=== PATIENT | male | born 1940 | race Caucasian/White ===

== ENCOUNTER 2019-04-08 17:01 | Inpatient (IN) | payer MEDICARE ==
[2019-04-08] MEDS ORDERED: Ketorolac Tromethamine 30 MG/ML VIAL ONE (18:31)
[2019-04-08] MEDS ORDERED: Dexamethasone 4 mg/ml Vial ONE (18:31)
--- NOTE | 2019-04-08 19:12 | CT ---
CT LUMBAR SPINE WITHOUT CONTRAST: 04/08/19 HISTORY: Back pain since waking up this morning. COMPARISON: None. CORRELATION: MRI of the lumbar spine of 03/07/14. FINDINGS: There are five lumbar type vertebrae. Mild leftward curvature of the lumbar spine. Lumbar spine verte bral body height is maintained. There is no fracture of the vertebral bodies. There is vacuum disc ph enomenon at T12-L1, L1-L2, L2-L3, L4-5 and L5-S1. Severe loss of disc space height and end plate scle rosis and osteophyte formation at L2-3, compatible with type II Modic change. There are bilateral pars defects at L5. There is associated 8.5 mm of anterolisthesis of L5 upon S1. Visualized solid organs are grossly unremarkable. There appears to be stranding of the mesentery petar cent to what is likely a portion of the duodenum, incompletely evaluated. There is asymmetric edema i nvolving the right psoas muscles. Diverticulosis of the sigmoid colon is noted. Limited evaluation of the contents of the central spinal canal and neural foramina due to technique. T10-T11 and T11-T12 do not demonstrate high grade central canal stenosis. T12-L1: Vacuum disc phenomenon. No significant central canal stenosis. Mild bilateral neural foramina l narrowing. L1-L2: Vacuum disc phenomenon. Broad based disc bulge, ligamentum flavum thickening, and facet hypert rophy result in mild central canal stenosis. Moderate bilateral neural foraminal narrowing. L2-L3: Vacuum disc phenomenon. Broad based disc bulge, ligamentum flavum thickening, and facet hypert rophy result in moderate central canal stenosis. Severe right and moderate to severe left neural fora jona narrowing. L3-L4: There is a broad based disc bulge, ligamentum flavum thickening and facet hypertrophy that res ults in moderate central canal stenosis. There is abnormal soft tissue attenuation with a focus of ai r along the right paraspinal region. Findings may represent disc material. However, the fat planes be tween adjacent psoas muscle and the soft tissue density is somewhat obscured and there does appear to be asymmetric prominence. The possibility of paraspinal inflammatory change cannot be excluded. Kristal elate clinically. Pre and post contrast MRI may be beneficial. L4-L5: Vacuum disc phenomenon. Broad based disc bulge, ligamentum flavum thickening and facet hypertr ophy result in moderate central canal stenosis. L5-S1: Vacuum disc phenomenon. Bilateral pars defects. No high grade central canal stenosis. Moderate to severe right and left foraminal narrowing. IMPRESSION: 1. 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 2. Multilevel vacuum disc phenomenon with varying degrees of central canal stenosis and neural f oraminal as described above. 3. Asymmetric abnormal soft tissue attenuation of the right paraspinal region at the L3 level wi th a small focus of air. Findings may represent a right lateral disc extrusion. However, the fat petar cent to the medial aspect of the right psoas muscle is obscured and there appears to be asymmetric fu llness of the right psoas muscle. The possibility of an infectious inflammatory process cannot be exc luded. Further evaluation with pre and post contrast MRI lumbar spine is recommended. POS: PPP
[2019-04-08 19:48] LABS: #Lymphocytes 0.6 thou/uL (1.20-3.40); #Monocytes 1.3 thou/uL (0.11-0.59); %Lymphocytes 3.5 % (21.0-51.0); %Monocytes 8.1 % (0.0-10.0); %Neutrophils 88.4 % (42.0-75.0); Hemoglobin 14.5 g/dL (14.0-18.0); Mean Corpuscular HGB CONC 34.1 g/dL (32.0-36.0); Mean Corpuscular Hemoglobin 32.2 pg (27.0-31.0); Mean Corpuscular Volume 94.5 fL (78.0-98.0); Mean Platelet Volume 7.9 fL (7.4-10.4); Platelet Count 774 thou/uL (130-400); RBC Distribution Width 12.1 % (11.5-14.5); White Blood Cell (WBC) Count 15.8 thou/uL (4.8-10.8)
[2019-04-08 20:12] LABS: ALT (SGPT) 16 U/L (8-55); AST (SGOT) 25 U/L (5-34); Albumin 4.2 g/dL (3.4-4.8); Alkaline Phosphatase 67 U/L (40-110); Anion Gap 12 mmol/L (10-20); BUN (Urea Nitrogen) 22 mg/dL (8.4-25.7); Bilirubin, Total 0.9 mg/dL (0.2-1.2); Calc. Creatinine Clearance 0 mL/min (70-130); Calcium 9.2 mg/dL (7.8-10.44); Carbon Dioxide 24 mmol/L (23-31); Chloride 107 mmol/L (98-107); Estimated GFR-MDRD 69; Glucose 139 mg/dL (83-110); Potassium 3.8 mmol/L (3.5-5.1); Protein, Total 7.2 g/dL (5.8-8.1); Sodium 139 mmol/L (136-145)
--- NOTE | 2019-04-08 21:34 | MRI ---
LUMBAR SPINE MRI WITH AND WITHOUT CONTRAST: 04/08/19 HISTORY: Possible infection at the L3-L4 level. COMPARISON: 03/07/14. CORRELATION: CT lumbar spine 04/08/19. FINDINGS: Heterogeneous T1 marrow signal intensity of the lumbar vertebrae. There is intrinsic T1 hypointensity with associated T2 and STIR hyperintensity along the midline and right aspect of the inferior end pl ate of L3 and superior end plate of L4. There is evidence of edema along the midline and right aspect of the disc space. Postcontrast images demonstrate mild enhancement of the end plate as well as enha ncement of the disc space. STIR images demonstrate mild edema along the anterior and right paraspinal aspect of the L3-L4 disc space. Postcontrast images demonstrate enhancement along the medial aspect of the disc space, right paraspinal in location. There is also enhancement along the medial aspect of the right psoas muscle with loss of the normal fat plane. There does appear to be mild associated ed dennis. The remainder of the lumbar spine does not demonstrate any abnormal vertebral body enhancement. Images do demonstrate significant enhancement posterior to the L3 vertebral body, L3-4 disc space and to a lesser extent L4 vertebral body. Anterior epidural abscess cannot be excluded. Conus medullaris terminates at the inferior aspect of L1. There is evidence of fluid signal intensity in the left and right facets at L1-L2, L3-L4. There are p ars defects with associated grade I anterolisthesis of L5 upon S1. There is fluid signal intensity in the facets at L5. T12-L1: No high grade central canal stenosis. L1-L2: Mild central canal stenosis. There is ligamentum flavum thickening and facet hypertrophy. Mode rate to severe bilateral foraminal narrowing. L2-L3: Moderate central canal stenosis. Moderate to severe right and moderate left foraminal narrowin g. L3-L4: Moderate to severe central canal stenosis due to broad based disc osteophyte complex. Severe r ight and moderate to severe left foraminal narrowing. L4-L5: Broad based disc bulge with a small central/right subarticular disc bulge. Mild to moderate ce ntral canal stenosis. Moderate to severe bilateral foraminal narrowing. L5-S1: No significant central canal stenosis. Moderate to severe bilateral foraminal narrowing. There does appear to be some enhancement involving the posterior right paraspinal soft tissues at the L3-L4 facets which may represent reactive change and facet arthropathy/reactive arthritic change. IMPRESSION: Findings suggesting inflammatory change at the L3-L4 disc space as well as the adjacent paraspinal mu scles (right psoas muscle). There is also suggestion of possible anterior epidural abscess/inflammato ry change at the L3 level, extending inferiorly to the L3-L4 disc space. POS: PPP
[2019-04-08] MEDS ORDERED: Cefepime 2 GM VIAL ONE (21:54)
[2019-04-08] MEDS ORDERED: Fentanyl 100 MCG/2 ML VIAL ONE (21:54)
[2019-04-08] MEDS ORDERED: Ondansetron PF 4 MG/2 ML Vial ONE (21:54)
[2019-04-09] MEDS ORDERED: Ondansetron ODT 4 MG TAB SL PRN (00:15)
[2019-04-09] MEDS ORDERED: Ondansetron PF 4 MG/2 ML Vial IVP PRN ×2 (00:15→09:46)
[2019-04-09] MEDS: Fentanyl 100 MCG/2 ML VIAL SLOW IVP PRN ×3 (00:40→07:21)
[2019-04-09 01:16] VITALS: BMI 26.4
[2019-04-09] MEDS ORDERED: hydrALAZINE 25 MG TAB PO PRN (09:46)
[2019-04-09] MEDS ORDERED: Ondansetron ODT 4 MG TAB PO PRN (09:46)
[2019-04-09] MEDS ORDERED: hydrALAZINE 20 MG/ML VIAL SLOW IVP PRN (09:46)
[2019-04-09] MEDS ORDERED: Fentanyl 100 MCG/2 ML VIAL SLOW IVP PRN (09:46)
[2019-04-09] MEDS: Cyclobenzaprine 10 MG TAB PO PRN (10:22)
[2019-04-09] MEDS ORDERED: Finasteride 5 MG TAB PO SCH (10:30)
[2019-04-09] MEDS ORDERED: Famotidine 20 MG TAB PO SCH (10:30)
[2019-04-09] MEDS ORDERED: Folic Acid 1 MG TAB PO SCH (10:30)
[2019-04-09] MEDS ORDERED: CeleCOXIB 100 MG CAP PO SCH (10:30)
[2019-04-09] MEDS ORDERED: Enoxaparin Sodium 40 MG/0.4 ML SYRINGE SC SCH (10:30)
--- NOTE | 2019-04-09 11:18 | HP ---
PRIMARY CARE PHYSICIAN: Dr. Good Sarmiento. NEUROSURGERY: Dr. Shawn Gordillo. CHIEF COMPLAINT: "I woke up yesterday morning and could barely stand." HISTORY OF PRESENT ILLNESS: Mr. Driver is a pleasant 78-year-old gentleman, who has a history of chronic low back pain after having a fall back in 1971. He says he has chronic "sciatica" and mainly has pain that goes down the left side of his back and this has been relatively stable since he had an injury back in 1971. He says that he had some degenerative disease at L4 and L5. He has been to see Dr. Caceres in [facility] off and on, and he does exercises 3 times a week primarily core exercises, which he says it helps to stabilize his back pain. However, yesterday morning, he says he woke up in severe pain in his lower back. He says when he tries to stand or sit up that it causes excruciating pain. He denies having any fever or chills. No nausea. No vomiting. He denies any bowel or bladder problems associated with this. He also denies any weight loss. He says he tries to keep his weight stable at 175 pounds. Due to the severe pain in his back, he came to the ER for evaluation. There, they did a CT scan of his lumbar spine as well as a MRI of the lumbar spine and found changes, which were concerning for possible epidural abscess with some inflammatory changes at L3-L4 level as well as some adjacent inflammatory changes in the paraspinous muscles. He also was noted to have an elevated white blood cell count at 15.8 and his C-reactive protein was also elevated, and for this reason, he is being admitted. Otherwise, the patient has no other significant past medical complaints. REVIEW OF SYSTEMS: All systems were negative except for that mentioned in the history of present illness. PAST MEDICAL HISTORY: Negative. PAST SURGICAL HISTORY: He has had a synovial cyst removed from both hands. He also has a history of surgery for deviated septum and removal of nasal polyps. He also had a nail that was imbedded in his left leg and it had been there for a year and a half, and this had to be removed as it caused a large hematoma. He also had a left Achilles tendon repair and tendinitis surgery for tendinitis. ALLERGIES: PENICILLIN AND DECLOMYCIN, BUT I THINK IT IS DEMECLOCYCLINE WELL CERTAIN NARCOTICS. SOCIAL HISTORY: He is . He has 3 children. 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 He is a nonsmoker. He says he rarely drinks alcohol and he would not want to be resuscitated. He says he does not want chest compressions or to be placed on a ventilator. CURRENT MEDICATIONS: Include; 1. Ascorbic acid 1 capsule twice daily. 2. Bilberry Extract 100 mg daily. 3. Biotin 23598 mcg daily. 4. Celebrex 200 mg daily. 5. Desonide lotion. 6. Eucalyptus menthol cough drops p.r.n. 7. Proscar 5 mg p.o. daily. 8. Fish oil 1600 mg twice daily. 9. Flonase nasal spray. 10. Folic acid 0.4 p.o. daily. 11. Lactase 9000 units daily. 12. Loratadine 10 mg daily. 13. Singulair 10 mg daily. 14. Naprosyn 220 mg daily. 15. [place]-3 fish oil 1 capsule daily. 16. DHEA 25 mg daily. 17. Viagra p.r.n. 18. Tolnaftate cream daily. 19. Vitamin E 400 units as directed. PHYSICAL EXAMINATION: GENERAL: He is alert and oriented. He appears to be in no acute distress. He is well developed and well nourished. VITAL SIGNS: Blood pressure initially was elevated at 198 systolic, currently it is down to 129/67; heart rate 67; respiratory rate of 16; temperature is 99. HEENT: His pupils are equal, round, and reactive to light. Extraocular muscles are intact. His sclerae are anicteric. Throat, there is no erythema. No exudates. NECK: No adenopathy. No bruits. LUNGS: Clear to auscultation. There is no wheezing. No rales. No rhonchi. CARDIOVASCULAR: He has a normal S1, S2. There is no S3 or S4. No murmurs, clicks, or rubs. ABDOMEN: Soft, nontender, nondistended. Positive for bowel sounds. There is no rebound, no guarding. No organomegaly. Liver span was approximately 6 cm to percussion. EXTREMITIES: He appears to have some mild calf atrophy on the right lower extremity and on the right calf and thigh. There are no joint effusions. No crepitus. NEUROLOGICAL: His cranial nerves are intact. Muscle strength was 5/5 in both the upper and lower extremities. However, on both right and left lower extremity, he did have some mild weakness against resistance. However, he was able to dorsiflex his foot as well as a large toe. His reflexes are equivocal. SKIN AND INTEGUMENT: There are no skin changes. No rash. LABORATORY DATA: White blood cell count is 15.8, hemoglobin is 14.5, hematocrit is 42.5, and platelet count is 774. Sodium 139, potassium 3.8, chloride is 107, CO2 is 24, BUN of 22, creatinine 1.04, glucose is 139, and C-reactive protein is 3.37. ASSESSMENT: This is a pleasant 78-year-old gentleman, who presents with the sudden onset of [id number] low back pain. He has radiographic evidence of possible inflammatory changes in the L3-L4 region. His white blood cell count is also elevated as well as his C-reactive protein. Therefore, the most likely etiology is a spinal epidural abscess. He has had manipulation of the spine with injections in the past, which could put him at risk. Other changes such as malignancy or other structural defects are less likely. 1. Possible spinal infection. We will place him empirically on IV antibiotics. We will continue vancomycin and cefepime. We will consult ID for further recommendations. We will also consult Neurosurgery to assess the stability of this lesion. 2. Elevated blood pressure. This is without a diagnosis of hypertension. His blood pressure has since normalized and I suspect the elevation was due to pain. We will hold off on starting any antihypertensives and place him on p.r.n. medications as needed. 3. History of benign prostatic hypertrophy. We will continue the finasteride. 4. History of overactive bladder. We will continue oxybutynin. 5. The patient will be placed on DVT and GI prophylaxis. Job ID: [id number]
[2019-04-09] MEDS ORDERED: Heparin 1,000 UNITS/ML VIAL ONE (16:26)
[2019-04-09] MEDS: Famotidine 20 MG TAB PO SCH (20:13)
[2019-04-09] MEDS: Cefepime 1 GM in Sodium Chloride 0.9% 100 ML IVPB SCH (20:13)
--- NOTE | 2019-04-09 20:15 | CON ---
DATE OF CONSULTATION: 04/09/2019 REASON FOR CONSULTATION: Lumbar spinal infection. HISTORY OF PRESENT ILLNESS: A 78-year-old, first admission to this hospital with a history of anterior spondylolisthesis, sciatica, Guillain-[place] syndrome, and BPH, who has chronic low back pain in [id number] intensity and the day before admission developed sudden exacerbation of the pain without any obvious injury. He did not have any fever or chills. No headaches. No neck pain or thoracic spine pain. No dyspnea or chest pain. No cough. No abdominal pain or diarrhea. He has a little bit of incontinence of urine. A little bit of BPH symptoms. The patient had an MRI, which showed findings described below. Currently, appears in no distress. The pain goes up to 4/10 when he goes up to the bathroom and when he is lying down, it is around 1/10. Other points in the review of systems as above. 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 Never smoker. ALLERGIES: DEMECLOCYCLINE, OPIOIDS, AND PENICILLIN. FAMILY HISTORY: Noncontributory. CURRENT MEDICATIONS: 1. Tylenol. 2. Cefepime. 3. Celebrex. 4. Flexeril. 5. Lovenox. 6. Pepcid. 7. Sublimaze. 8. Proscar. 9. Flonase. 10. Folvite. 11. Apresoline. 12. Singulair. 13. Zofran. 14. Vancomycin. PHYSICAL EXAMINATION: VITAL SIGNS: T-max 99.2, blood pressure 113/69, pulse 79, respirations 18, and O2 saturation 94. SKIN: With peripheral IV access. No Pederson catheter. Voiding in the urinal. No lymphadenopathy. HEENT: Ocular movements conjugate. Oral cavity with quite a few teeth in place, in fairly decent shape. No oral lesions. NECK: Supple. No jugular venous distention or carotid bruits. LUNGS: Symmetric clear breath sounds. Moderate lumbosacral spine tenderness on palpation. HEART: S1 and S2. Regular rate. ABDOMEN: Soft, not distended or tender. No ascites. No bladder distention. EXTREMITIES: No joint inflammatory activity. Strength in upper and lower extremities 5/5. Pulses 1+ in dorsalis pedis. No edema. Plantar responses are flexor. No clonus. NEUROLOGIC: His cognitive function appears to be intact. LABORATORY DATA: Chemistry was normal except for glucose 139. CRP was 3.37. White cell count 15.8, hemoglobin 14.5, platelets 774, and 88% neutrophils. I do not have a urinalysis. Two sets of blood cultures thus far no growth and the lumbar spine MRI showed inflammatory changes L3-L4 disk space and adjacent paraspinal muscles, possible anterior epidural abscess at L3 level extending inferiorly to L3-L4 disk space. ASSESSMENT: Chronic low back pain, now with exacerbation and evidence of inflammatory changes at L3-L4 level with diskitis and paraspinal myositis and possible small abscess in the anterior epidural area. DISCUSSION: The usual pathogens include Staphylococcus aureus, coagulase-negative Staph, gram-negative rods, streptococci, and Enterococcus. In his case, the urinary tract may be a candidate for source. Usually those are not amenable to aspiration or biopsy and I think he is going to probably end up with medical treatment and PICC line placement. I would give him Rocephin and vancomycin for protracted period of time. Discharge planning once he is stabilized. Sometimes Neurosurgery is consulted, I believe fairly confident that Neurosurgery would not intervene in this case, but may request their opinion to see if they concur that. Job ID: [id number]
[2019-04-09] MEDS ORDERED: Vancomycin 1.5 GRAM/300 ML BAG 1.5 GM in Premix Bag 1 BAG IVPB SCH (21:00)
[2019-04-09] MEDS ORDERED: Montelukast Sodium 10 mg Tablet PO SCH (21:00)
[2019-04-09] MEDS ORDERED: Vancomycin HCl 1 GM in Premix Bag 1 BAG IVPB SCH (21:00)
[2019-04-10 04:26] LABS: Band 4 % (5-11); Hemoglobin 13.3 g/dL (14.0-18.0); Lymphocytes 3 % (21-51); MDiff Complete? YES; Mean Corpuscular HGB CONC 32.8 g/dL (32.0-36.0); Mean Corpuscular Hemoglobin 31.6 pg (27.0-31.0); Mean Corpuscular Volume 96.3 fL (78.0-98.0); Mean Platelet Volume 7.9 fL (7.4-10.4); Monocytes 5 % (0-10); Neutrophil 88 % (42-75); Platelet Count 660 thou/uL (130-400); Platelet Morphology Comment Appears Increased; RBC Distribution Width 12.3 % (11.5-14.5); Red Blood Cell (RBC) Count 4.22 mill/uL (4.70-6.10); White Blood Cell (WBC) Count 16.1 thou/uL (4.8-10.8)
[2019-04-10 04:33] LABS: Anion Gap 12 mmol/L (10-20); BUN (Urea Nitrogen) 27 mg/dL (8.4-25.7); Calc. Creatinine Clearance 58 mL/min (70-130); Calcium 8.7 mg/dL (7.8-10.44); Carbon Dioxide 26 mmol/L (23-31); Chloride 106 mmol/L (98-107); Estimated GFR-MDRD 59; Glucose 114 mg/dL (83-110); Sodium 140 mmol/L (136-145)
[2019-04-10] MEDS: Fluticasone Propionate Nasal Spray 16 gm Bottle NASAL SCH (06:00)
[2019-04-10] MEDS: Cyclobenzaprine 10 MG TAB PO PRN ×2 (08:30→20:32)
[2019-04-10] MEDS: Famotidine 20 MG TAB PO SCH ×2 (08:32→20:32)
[2019-04-10] MEDS: Folic Acid 1 MG TAB PO SCH (08:33)
[2019-04-10] MEDS: Finasteride 5 MG TAB PO SCH (08:34)
[2019-04-10] MEDS: CeleCOXIB 100 MG CAP PO SCH (08:34)
[2019-04-10] MEDS: Cefepime 1 GM in Sodium Chloride 0.9% 100 ML IVPB SCH (08:35)
[2019-04-10] MEDS: Enoxaparin Sodium 40 MG/0.4 ML SYRINGE SC SCH (08:37)
[2019-04-10] MEDS: Acetaminophen 325 MG TAB PO PRN ×2 (08:48→18:24)
[2019-04-10] MEDS ORDERED: Non-Formulary Item 1 EACH (Celecoxib [Celebrex] 200 MG) PO SCH (09:00)
[2019-04-10] MEDS ORDERED: Non-Formulary Item 1 EACH (Folic Acid [Folic Acid] 0.4 MG) PO SCH (09:00)
--- NOTE | 2019-04-10 12:18 | PDOC.HOSPP ---
- Subjective Encounter Date: 04/10/19 Encounter Time: 12:16 Subjective: Mr. Driver was seen today in follow-up of Lumbar spine epidural abscess. He continues to have about the same amount of back pain. He does not have any new complaints. - Objective Vital Signs & Weight: Vital Signs (12 hours) Temp Pulse Resp BP Pulse Ox 04/10/19 07:25 99.3 F 80 18 147/75 H 92 L 04/10/19 04:13 98.2 F 84 20 121/70 93 L Weight Weight 178 lb 15.893 oz I&O: 04/09/19 04/10/19 04/11/19 06:59 06:59 06:59 Intake Total 200 1500 Balance 200 1500 Result Diagrams: 04/10/19 03:47 04/10/19 03:47 Hospitalist ROS - Medication Medications: Active Medications Generic Name Dose Route Start Last Admin Trade Name Freq PRN Reason Stop Dose Admin Acetaminophen 650 mg 04/09/19 09:46 04/10/19 08:48 Tylenol PO 650 mg Q4H PRN Administration Headache/Fever/Mild Pain (1-3) Celecoxib 200 mg 04/10/19 09:00 04/10/19 08:34 Celebrex PO 200 mg DAILY DIRK Administration Cyclobenzaprine HCl 5 mg 04/09/19 09:46 04/10/19 08:30 Flexeril PO 5 mg TID PRN Administration Muscle Spasm Enoxaparin Sodium 40 mg 04/10/19 09:00 04/10/19 08:37 Lovenox SC Not Given 0900 DIRK Famotidine 20 mg 04/09/19 21:00 04/10/19 08:32 Pepcid PO 20 mg BID DIRK Administration Fentanyl 25 mcg 04/09/19 09:46 04/09/19 14:29 Sublimaze SLOW IVP 25 mcg Q4HR PRN Administration Severe Pain (7-10) Finasteride 5 mg 04/10/19 09:00 04/10/19 08:34 Proscar PO 5 mg DAILY DIRK Administration Fluticasone Propionate 0 gm 04/10/19 09:00 04/10/19 06:00 Flonase Nasal [place] NASAL 2 spr DAILY DIRK Administration Folic Acid 0.5 mg 04/10/19 09:00 04/10/19 08:33 Folvite PO 0.5 mg DAILY DIRK Administration Cefepime HCl 1 gm/ Sodium 100 mls @ 200 mls/hr 04/09/19 21:00 04/10/19 08:35 Chloride IVPB 100 mls Q12HR DIRK Administration Vancomycin 1.5 GRAM/300 ML BAG 300 mls @ 200 mls/hr 04/09/19 21:00 04/09/19 20:34 1.5 gm/ Device IVPB 300 mls Q24HR DIRK Administration Montelukast Sodium 10 mg 04/09/19 21:00 04/09/19 20:13 Singulair PO 10 mg Q7DAYS DIRK Administration Sodium Chloride 10 ml 04/09/19 21:00 04/10/19 08:48 Flush - Normal Saline IVF 10 ml Q12HR DIRK Administration - Exam Eye: PERRL Heart: RRR, no murmur, no gallops, no rubs, normal peripheral pulses Respiratory: CTAB, no wheezes, no rales, no ronchi, normal chest expansion, no tachypnea Gastrointestinal: soft, non-tender, non-distended, normal bowel sounds, no palpable masses, no hepatomegaly Extremities: no cyanosis, no clubbing, no edema Musculoskeletal: normal strength (in both lower extremities), no muscle wasting Psychiatric: normal affect, normal behavior, A&O x 3 Hosp A/P (1) Abscess in epidural space of L2-L5 lumbar spine Code(s): G06.1 - INTRASPINAL ABSCESS AND GRANULOMA Status: Acute (2) BPH (benign prostatic hyperplasia) Code(s): N40.0 - BENIGN PROSTATIC HYPERPLASIA WITHOUT LOWER URINRY TRACT SYMP Status: Acute (3) Overactive bladder Code(s): N32.81 - OVERACTIVE BLADDER Status: Acute - Plan * Lumbar Epidural Abscess- continue Vancomycin and Cefepime- blood cultures are growing Strep * Will place Picc line on Thursday * BPH- stable- continue home medications * Elevated blood pressure- better
--- NOTE | 2019-04-10 14:54 | PRG ---
DATE OF SERVICE: 04/10/2019 SUBJECTIVE: The patient still with some pain in the lower back about the same as before. No respiratory symptoms. No abdominal pain or diarrhea. No genitourinary symptoms. Still able to stand up with some difficulty. OBJECTIVE: VITAL SIGNS: T-max 99.3 to 100.7, blood pressure 120/76, and pulse 85. GENERAL: Awake, alert, and oriented. LUNGS: Clear. HEART: S1 and S2, regular rate. ABDOMEN: Not tender. LABORATORY DATA: White cell count 16.1, hemoglobin 13, platelets 660, 88% neutrophils. Creatinine 1.20. Microbiology with 2 sets of blood cultures with Streptococcus anginosus. ASSESSMENT: Chronic low back pain with exacerbation of inflammatory changes, L3-L4 with diskitis and paraspinal myositis. Now, Streptococcus anginosus bacteremia, 2 sets. DISCUSSION: The patient will have a CT of abdomen and pelvis to evaluate for intra-abdominal inflammatory process and an echocardiogram to complete workup. Switch him to Rocephin once daily. Job ID: [id number]
[2019-04-10] MEDS ORDERED: cefTRIAXone\\ROCEPHIN 2 GM VIAL ONE (14:55)
[2019-04-10] MEDS: cefTRIAXone\\ROCEPHIN 2 GM in Sodium Chloride 0.9% 100 ML IVPB SCH (15:03)
[2019-04-10] MEDS ORDERED: Iopamidol-370 76% 500 ML 1 ML ONE (16:49)
[2019-04-10] MEDS: Docusate 100 MG CAP PO SCH (20:32)
--- NOTE | 2019-04-10 21:09 | CON ---
DATE OF CONSULTATION: This is an imaging review note and chart review. I have not yet seen this patient. Mr. Driver is a 78-year-old man, who came to the emergency department yesterday evening for sudden onset back pain. He has a longstanding history of lower back pain according to the chart. Upon review of his MRI scan, he has tremendous degree of degenerative change with facet distraction from L3 down to S1, extreme facet arthropathy, and spondylosis, as well as a grade 2 anterolisthesis at L5-S1. All this combined imposes varying degree of spinal canal and neural foraminal narrowing, most significant at L3-L4, where he also has hyperintensity within the L3 disk, which could represent diskitis, that is commentary from the radiologist about potential anterior epidural abscess. I think it is difficult to say whether there is or is not, but if this is in fact diskitis, it stands to reason that it could be according to the ER physician and his notes, there is no neurologic dysfunction other than back pain and so from Neurosurgery's plan, we would defer to primary medical management with the Hospitalist team and with Infectious Disease, would also potentially recommend IR biopsy for cultures and sensitivities. From Neurosurgery standpoint, there does not appear to be any imminent surgical intervention necessary. I have not yet seen this patient, but if his neurologic status changes or declines, would invite re-consultation for in-person re-evaluation. Job ID: [id number]
--- NOTE | 2019-04-10 21:12 | CT ---
ABDOMEN CT WITH CONTRAST PELVIC CT WITH CONTRAST: History: Discitis, osteomyelitis. Comparison: None. FINDINGS: ABDOMEN CT: Small bilateral pleural effusions. Lung parenchymal changes may represent atelectasis. Aspiration and /or pneumonia is less favored given linear appearance. Normal heart size. No significant pericardial fluid. Visualized aorta has a normal caliber. Portal vein is patent. Unremarkable gallbladder. Liver, spleen, pancreas, and adrenal glands have appropriate attenuation and enhancement. Symmetric enhancement of the kidneys. Bilaterally, no obstructive uropathy. Gastric mucosa is unremarkable. There is a diverticulum in the third portion of the duodenum. Multipl e normal caliber small bowel loops. No evidence of bowel obstruction. Unremarkable ileocecal junction . Normal caliber appendix. Scattered fecal material in a nondistended, nondilated colon. There is sig moid colon diverticulosis, without evidence of diverticulitis. There is evidence of a stranding of the abdominal mesentery as well as stranding of the left and rig ht perirenal fat. Small amount of fluid in both pericolic gutters. There is periaortic stranding. The re is asymmetric abnormal soft tissue attenuation in the paraspinal region at the L3-4 and L4-5 disc space. Findings are compatible with known discitis osteomyelitis as well as associated inflammatory c hanges of the paraspinal muscles which have been described on previous reports. CT PELVIS: Mild enlargement of the prostate gland. Unremarkable urinary bladder. No pelvic mass, lymphadenopathy, or free air. Trace amount of free fluid in the pelvis. OSSEOUS STRUCTURES: Known osteomyelitis as described in the CT lumbar spine performed 04-08-19. IMPRESSION: 1. Small bilateral effusions. 2. Fluid and inflammatory changes involving the retroperitoneum and mesentery which may be reactive. There is no evidence of intraabdominal abscess. 3. No evidence of acute inflammation with regards to the alimentary canal. 4. Symmetric enhancement of the kidneys. Nonobstructive calculus in the intrarenal collecting system. Bilaterally, no obstructive uropathy. 5. Diverticulum in the third portion of the duodenum without evidence of associated inflammatory benz ge. POS: PPP
[2019-04-10] MEDS: traMADol HCl 50 MG TAB PO PRN (21:55)
[2019-04-11] MEDS: CeleCOXIB 100 MG CAP PO SCH (08:03)
[2019-04-11] MEDS: Famotidine 20 MG TAB PO SCH ×2 (08:04→20:49)
[2019-04-11] MEDS: Docusate 100 MG CAP PO SCH ×2 (08:04→20:49)
[2019-04-11] MEDS: Finasteride 5 MG TAB PO SCH (08:05)
[2019-04-11] MEDS: Folic Acid 1 MG TAB PO SCH (08:05)
[2019-04-11] MEDS: traMADol HCl 50 MG TAB PO PRN ×2 (08:06→20:49)
[2019-04-11] MEDS: Oxybutynin 5 MG TAB PO SCH (08:06)
[2019-04-11] MEDS: Fluticasone Propionate Nasal Spray 16 gm Bottle NASAL SCH (08:07)
[2019-04-11] MEDS: Enoxaparin Sodium 40 MG/0.4 ML SYRINGE SC SCH ×2 (08:07→08:08)
[2019-04-11 08:21] LABS: Hemoglobin 12.7 g/dL (14.0-18.0); Mean Corpuscular HGB CONC 33.1 g/dL (32.0-36.0); Mean Corpuscular Hemoglobin 32.1 pg (27.0-31.0); Platelet Count 562 thou/uL (130-400); RBC Distribution Width 12.2 % (11.5-14.5); Red Blood Cell (RBC) Count 3.97 mill/uL (4.70-6.10)
[2019-04-11 08:25] LABS: Anion Gap 11 mmol/L (10-20); BUN (Urea Nitrogen) 26 mg/dL (8.4-25.7); Calc. Creatinine Clearance 62 mL/min (70-130); Calcium 8.5 mg/dL (7.8-10.44); Carbon Dioxide 26 mmol/L (23-31); Chloride 105 mmol/L (98-107); Estimated GFR-MDRD 63; Glucose 134 mg/dL (83-110); Potassium 3.8 mmol/L (3.5-5.1); Sodium 138 mmol/L (136-145)
--- NOTE | 2019-04-11 09:19 | SPC ---
LEFT UPPER EXTREMITY PICC LINE WITH ULTRASOUND GUIDANCE: HISTORY: Osteomyelitis. COMPARISON: None. EXPOSURE: 0.7 minutes, 5124 mGy*^.cm2. FINDINGS: Successful left upper kidney PICC line placement with ultrasound guidance. Single-lumen 5 [place]og[place]ese cath eter terminates in the cavoatrial junction. 47 cm trim length. TECHNIQUE: Consent was obtained to perform a left upper extremity PICC line with ultrasound guidance. Left arm w as prepped and draped in sterile fashion. 1% lidocaine, buffered with sodium bicarbonate was used for local anesthesia. Under ultrasound guidance, a micropuncture needle was used to cannulate the bas ilic vein. A 0.018 guidewire was advanced through the needle to the level of the superior vena cava. Under fluoroscopy, the wire was advanced into the inferior vena cava to document venous access. Wire was subsequently pulled back to the cavoatrial junction. Tract was dilated. A single-lumen 5 [place]og[place]ese catheter was advanced over the wire. Wire was removed. Catheter does flush and aspirate withou t difficulty. 47 cm trim length. IMPRESSION: Successful left upper extremity PICC line placement with ultrasound guidance. Transcribed Date/Time: 04/11/2019 9:40 AM
[2019-04-11 09:54] LABS: Band 4 % (5-11); Lymphocytes 7 % (21-51); MDiff Complete? YES; Monocytes 5 % (0-10); Neutrophil 83 % (42-75); Platelet Morphology Comment Appears Increased; RBC Morphology Normal; Reactive Lymphocytes 1 % (0-10); Vacuoles SLIGHT
[2019-04-11] MEDS: cefTRIAXone\\ROCEPHIN 2 GM in Sodium Chloride 0.9% 100 ML IVPB SCH (14:40)
--- NOTE | 2019-04-11 16:47 | PDOC.HOSPP ---
- Subjective Encounter Date: 04/11/19 Encounter Time: 16:46 Subjective: Mr. Driver was seen today in follow-up of lumbar epidural abscess. He says the pain in his back is improving some. - Objective Vital Signs & Weight: Vital Signs (12 hours) Temp Pulse Resp BP Pulse Ox 04/11/19 15:20 98.9 F 72 18 130/75 96 04/11/19 11:53 98.7 F 82 11 L 124/72 93 L 04/11/19 11:00 14 04/11/19 08:04 93 L 04/11/19 07:00 98.7 F 78 14 125/78 93 L Weight Weight 178 lb 15.893 oz I&O: 04/10/19 04/11/19 04/12/19 06:59 06:59 06:59 Intake Total 1500 105 Balance 1500 105 Result Diagrams: 04/11/19 07:55 04/11/19 07:55 Hospitalist ROS - Medication Medications: Active Medications Generic Name Dose Route Start Last Admin Trade Name Freq PRN Reason Stop Dose Admin Acetaminophen 650 mg 04/09/19 09:46 04/10/19 18:24 Tylenol PO 650 mg Q4H PRN Administration Headache/Fever/Mild Pain (1-3) Celecoxib 200 mg 04/10/19 09:00 04/11/19 08:03 Celebrex PO 200 mg DAILY DIRK Administration Cyclobenzaprine HCl 5 mg 04/09/19 09:46 04/10/19 20:32 Flexeril PO 5 mg TID PRN Administration Muscle Spasm Docusate Sodium 100 mg 04/10/19 21:00 04/11/19 08:04 Colace PO 100 mg BID DIRK Administration Enoxaparin Sodium 40 mg 04/10/19 09:00 04/11/19 08:08 Lovenox SC Not Given 0900 DIRK Famotidine 20 mg 04/09/19 21:00 04/11/19 08:04 Pepcid PO 20 mg BID DIRK Administration Fentanyl 25 mcg 04/09/19 09:46 04/09/19 14:29 Sublimaze SLOW IVP 25 mcg Q4HR PRN Administration Severe Pain (7-10) Finasteride 5 mg 04/10/19 09:00 04/11/19 08:05 Proscar PO 5 mg DAILY DIRK Administration Fluticasone Propionate 0 gm 04/10/19 09:00 04/11/19 08:07 Flonase Nasal [place] NASAL 2 spr DAILY DIRK Administration Folic Acid 0.5 mg 04/10/19 09:00 04/11/19 08:05 Folvite PO 0.5 mg DAILY DIRK Administration Ceftriaxone Sodium 2 gm/ 100 mls @ 200 mls/hr 04/10/19 15:00 04/11/19 14:40 Sodium Chloride IVPB 100 mls 1500 DIRK Administration Montelukast Sodium 10 mg 04/09/19 21:00 04/09/19 20:13 Singulair PO 10 mg Q7DAYS DIRK Administration Oxybutynin Chloride 5 mg 04/11/19 09:00 04/11/19 08:06 Ditropan PO 5 mg DAILY DIRK Administration Sodium Chloride 10 ml 04/09/19 21:00 04/11/19 08:07 Flush - Normal Saline IVF 10 ml Q12HR DRIK Administration Tramadol HCl 50 mg 04/10/19 09:21 04/11/19 08:06 Ultram PO 50 mg Q4H PRN Administration Moderate Pain (4-6) - Exam Eye: PERRL Heart: RRR, no murmur, no gallops, no rubs, normal peripheral pulses Respiratory: CTAB, no wheezes, no rales, no ronchi, normal chest expansion Gastrointestinal: soft, non-tender, non-distended, normal bowel sounds, no palpable masses, no hepatomegaly Extremities: no cyanosis, no clubbing, no edema Hosp A/P (1) Abscess in epidural space of L2-L5 lumbar spine Code(s): G06.1 - INTRASPINAL ABSCESS AND GRANULOMA Status: Acute (2) BPH (benign prostatic hyperplasia) Code(s): N40.0 - BENIGN PROSTATIC HYPERPLASIA WITHOUT LOWER URINRY TRACT SYMP Status: Acute (3) Overactive bladder Code(s): N32.81 - OVERACTIVE BLADDER Status: Acute - Plan * Lumbar Epidural Abscess- His antibiotics have been transitioned to Rocephin * He had the PICC line placed today * BPH- stable- continue home medications * Elevated blood pressure- better * Discharge plans are in progress
[2019-04-11] MEDS: Cyclobenzaprine 10 MG TAB PO PRN (22:47)
[2019-04-11] MEDS: Acetaminophen 325 MG TAB PO PRN (22:47)
[2019-04-12] MEDS: traMADol HCl 50 MG TAB PO PRN ×4 (02:15→16:26)
[2019-04-12] MEDS: Acetaminophen 325 MG TAB PO PRN (03:30)
[2019-04-12] MEDS: CeleCOXIB 100 MG CAP PO SCH (07:44)
[2019-04-12] MEDS: Famotidine 20 MG TAB PO SCH (07:44)
[2019-04-12] MEDS: Folic Acid 1 MG TAB PO SCH (07:44)
[2019-04-12] MEDS: Docusate 100 MG CAP PO SCH (07:44)
[2019-04-12] MEDS: Oxybutynin 5 MG TAB PO SCH (07:44)
[2019-04-12] MEDS: Finasteride 5 MG TAB PO SCH (07:44)
[2019-04-12] MEDS: Fluticasone Propionate Nasal Spray 16 gm Bottle NASAL SCH (07:47)
[2019-04-12] MEDS: Enoxaparin Sodium 40 MG/0.4 ML SYRINGE SC SCH (07:48)
[2019-04-12] MEDS: cefTRIAXone\\ROCEPHIN 2 GM in Sodium Chloride 0.9% 100 ML IVPB SCH (14:03)
--- NOTE | 2019-04-12 14:53 | PDOC.HOSPP ---
- Subjective Encounter Date: 04/12/19 Encounter Time: 14:51 Subjective: Mr. Driver was seen today in follow-up of lumbar epidural abscess. He notes improved pain. - Objective Vital Signs & Weight: Vital Signs (12 hours) Temp Pulse Resp BP Pulse Ox 04/12/19 12:00 98.2 F 85 18 150/82 H 92 L 04/12/19 08:00 98.2 F 78 14 164/91 H 92 L 04/12/19 03:58 98.4 F 72 16 128/77 92 L Weight Weight 178 lb 15.893 oz I&O: 04/11/19 04/12/19 04/13/19 06:59 06:59 06:59 Intake Total 105 1580 Balance 105 1580 Result Diagrams: 04/11/19 07:55 04/11/19 07:55 Hospitalist ROS - Medication Medications: Active Medications Generic Name Dose Route Start Last Admin Trade Name Freq PRN Reason Stop Dose Admin Acetaminophen 650 mg 04/09/19 09:46 04/12/19 03:30 Tylenol PO 650 mg Q4H PRN Administration Headache/Fever/Mild Pain (1-3) Celecoxib 200 mg 04/10/19 09:00 04/12/19 07:44 Celebrex PO 200 mg DAILY DIRK Administration Cyclobenzaprine HCl 5 mg 04/09/19 09:46 04/11/19 22:47 Flexeril PO 5 mg TID PRN Administration Muscle Spasm Docusate Sodium 100 mg 04/10/19 21:00 04/12/19 07:44 Colace PO 100 mg BID DIRK Administration Enoxaparin Sodium 40 mg 04/10/19 09:00 04/12/19 07:48 Lovenox SC Not Given 899 DIRK Famotidine 20 mg 04/09/19 21:00 04/12/19 07:44 Pepcid PO 20 mg BID DIRK Administration Fentanyl 25 mcg 04/09/19 09:46 04/09/19 14:29 Sublimaze SLOW IVP 25 mcg Q4HR PRN Administration Severe Pain (7-10) Finasteride 5 mg 04/10/19 09:00 04/12/19 07:44 Proscar PO 5 mg DAILY DIRK Administration Fluticasone Propionate 0 gm 04/10/19 09:00 04/12/19 07:47 Flonase Nasal [place] NASAL 2 spr DAILY DIRK Administration Folic Acid 0.5 mg 04/10/19 09:00 04/12/19 07:44 Folvite PO 0.5 mg DAILY DIRK Administration Ceftriaxone Sodium 2 gm/ 100 mls @ 200 mls/hr 04/10/19 15:00 04/12/19 14:03 Sodium Chloride IVPB 100 mls 1500 DIRK Administration Montelukast Sodium 10 mg 04/09/19 21:00 04/09/19 20:13 Singulair PO 10 mg Q7DAYS DIRK Administration Ondansetron HCl 4 mg 04/09/19 09:46 04/12/19 08:49 Zofran Odt PO 4 mg Q6H PRN Administration Nausea/Vomiting Oxybutynin Chloride 5 mg 04/11/19 09:00 04/12/19 07:44 Ditropan PO 5 mg DAILY DIRK Administration Sodium Chloride 10 ml 04/09/19 21:00 04/12/19 07:47 Flush - Normal Saline IVF 10 ml Q12HR DIRK Administration Tramadol HCl 50 mg 04/10/19 09:21 04/12/19 12:00 Ultram PO 50 mg Q4H PRN Administration Moderate Pain (4-6) - Exam Eye: PERRL Heart: RRR, no murmur, no gallops, no rubs, normal peripheral pulses Respiratory: CTAB, no wheezes, no rales, no ronchi, normal chest expansion Gastrointestinal: soft, non-tender, non-distended, normal bowel sounds Extremities: no cyanosis, no edema Hosp A/P (1) Abscess in epidural space of L2-L5 lumbar spine Code(s): G06.1 - INTRASPINAL ABSCESS AND GRANULOMA Status: Acute (2) BPH (benign prostatic hyperplasia) Code(s): N40.0 - BENIGN PROSTATIC HYPERPLASIA WITHOUT LOWER URINRY TRACT SYMP Status: Acute (3) Overactive bladder Code(s): N32.81 - OVERACTIVE BLADDER Status: Acute - Plan * Lumbar Epidural Abscess- outpatient arrangements have been made * Stable for discharge home
[2019-04-12 17:04] VITALS: BP 150/86; TEMP 98.6
--- NOTE | 2019-04-13 05:01 | DIS ---
DATE OF ADMISSION: 04/09/2019 DATE OF DISCHARGE: 04/12/2019 PRIMARY CARE PHYSICIAN: Good Sarmiento MD DISCHARGE DISPOSITION: Home. DISCHARGE DIAGNOSES: 1. Lumbar spinal epidural abscess. 2. BPH. 3. Overactive bladder. DISCHARGE MEDICATIONS: Include: 1. Rocephin 2 g IV daily until May 23. 2. Ultram 50 mg q.4 as needed. 3. Vitamin E 400 units p.o. daily. 4. CoQ10 of 100 mg daily. 5. Tolnaftate 1% topical daily. 6. Viagra 50 mg as directed. 7. DHEA 50 mg daily. 8. Waymart-3 fish oil one capsule daily. 9. Naprosyn 220 mg daily. 10. Singulair 10 mg every seven days. 11. Claritin 10 mg daily. 12. Hydrocortisone cream topical daily. 13. Folic acid 0.4 mg daily. 14. Proscar 5 mg daily. 15. Desonide 0.05% daily. 16. Biotin 10,000 mcg p.o. daily. 17. Ascorbic acid twice a day. PROCEDURES DONE DURING THE ADMISSION: The patient had a CT scan of the lumbar spine showing a grade 1 anterolisthesis of L5 upon S1, with associated spondylosis. There was multilevel vacuum disk phenomenon with varying degrees of central canal stenosis and neural foraminal stenosis, and some asymmetric abnormal soft tissue attenuation in the right paraspinal region at the L3 level. The patient also had MRI of the lumbar spine and the findings of which suggest inflammatory change at the L3-L4 disk space, as well as the paraspinal muscles. Possible anterior epidural abscess at the L3 level extending into the L4 space. The patient had a CT scan of the abdomen and pelvis, in which the major findings of which showed some symmetric enhancement of the kidneys, but no obstructing calculus. There was some inflammatory changes in the mesentery and retroperitoneal area, which was thought to be reactive. The patient also had an echocardiogram in which the ejection fraction was estimated at 50% to 55%. There was some E to A flow reversal suggestive of diastolic dysfunction and moderate mitral regurgitation. CODE STATUS: Full code. ALLERGIES: TO DEMECLOCYCLINE, OPIOIDS, MORPHINE, ANALOGS, EGGPLANT, SWEET PEPPERS, TOMATOES, [place] POTATOES, 3M REMOVER LOTION, [place], [place], STRAWBERRY, AND PENICILLINS. HOSPITAL COURSE: Mr. Driver is a pleasant 78-year-old gentleman, who has a history of chronic back pain, but woke up one morning with very severe lower back pain with weakness in his legs. He was found to have a lumbar spinal epidural abscess at the L3-L4 level. He was admitted and started on IV antibiotics. Blood cultures 2/2 grew Streptococcus anginosus. ID was consulted and his antibiotics were transitioned to Rocephin. He was having good clinical response in the hospital with this with reduced pain and increased mobility, and was able to be discharged home to continue a 6-week course of IV antibiotics, which will be done outpatient with home health. The patient was instructed to come back to the hospital if he had worsening fever, severe back pain, or weakness in his extremities. Job ID: [id number]
--- NOTE | 2019-04-14 01:17 | PQF ---
SHELBI CHASE TONI MD [id number] [facility] A [id number] CLINICAL DOCUMENTATION CLARIFICATION FORM: POST DISCHARGE Addendum to original discharge summary date: ____ Late entry note date: __ DATE: 04/14/19 ATTN: Robert Ferro Please exercise your independent, professional judgment in responding to the clarification form. Clinical indicators are provided on the bottom of this form for your review Can you please further clarify the diagnosis based on the clinical indicators below? Please check appropriate box(es): [ ] Sepsis due to: (Pna, UTI, gangrenous gall bladder, etc.) [ ] SIRS due to non-infectious process (please specify etiology) [ ] with organ dysfunction [ ] without organ dysfunction [ ] Localized infection without sepsis [ ] Other diagnosis please specify [ ] Unable to determine In addition, please specify: Present on Admission (POA): [ ] Yes [ ] No [ ] Unable to determine For continuity of documentation, please document condition throughout progress notes and discharge summary. Thank You. CLINICAL INDICATORS - SIGNS / SYMPTOMS / LABS H and P pg.1 -concerning for for possible epidural abscess with some inflammatory changes in the paraspinous process H and P pg.1- He also noted to have an elevated WBC at 15.8 and his C-reactive protein was also elevated Hospitalist PN 04/10 pg.5- Abscess in epidural space of L2-L5 Hospitalist PN 04/10 pg.5- blood culture growing strep RISK FACTORS 78 year old- DS pg.2 Lumbar spinal infection- Consult 04/09 Dr. Ware pg.1 Diskitis- Consult 04/09 Dr. Ware pg.1 Streptococcus anginosus bacteremia- PN 04/10 Dr. Ware TREATMENTS: Infectious Consult 04/09 Dr. Ware Lumbar Spine MRI 04/[address] 04/08 PICC placement 04/11 Blood Culture- 04/08 IV Antibiotics- JUL IV Fluids- JUL (This form is maintained as a part of the permanent medical record) 2014 [employer], [employer]. All Rights Reserved [email or web address] [not provided] [email or web address]
== END 2019-04-12 17:40 | disposition home or self-care (01) | DRG 95 ==
LOC: ERS 17:01 → SURG A 04-09 00:06
PROVIDERS: ADMIT Family Medicine; ATTEND Family Medicine
PROC: 02HV33Z Insertion of Infusion Device into Superior Vena Cava, Percutaneous Approach (ICD-10-PCS; principal; 2019-04-11)
PROC: B518ZZA Fluoroscopy of Superior Vena Cava, Guidance (ICD-10-PCS; 2019-04-11)
PROC: B54NZZA Ultrasonography of Left Upper Extremity Veins, Guidance (ICD-10-PCS; 2019-04-11)
DX: G06.1 Intraspinal abscess and granuloma (principal); G61.0 Guillain-Barre syndrome; M60.08 Infective myositis, other site; R78.81 Bacteremia; M46.46 Discitis, unspecified, lumbar region; F40.240 Claustrophobia; N40.0 Benign prostatic hyperplasia without lower urinary tract symptoms; M47.816 Spondylosis without myelopathy or radiculopathy, lumbar region; M54.30 Sciatica, unspecified side; N32.81 Overactive bladder; M43.16 Spondylolisthesis, lumbar region; B95.4 Other streptococcus as the cause of diseases classified elsewhere; F41.0 Panic disorder [episodic paroxysmal anxiety]; Z88.5 Allergy status to narcotic agent; Z88.0 Allergy status to penicillin; Z88.1 Allergy status to other antibiotic agents; Z91.018 Allergy to other foods; Z79.899 Other long term (current) drug therapy; R03.0 Elevated blood-pressure reading, without diagnosis of hypertension
CPT/HCPCS: 36415; 36569; 72131; 72158; 74177; 80048; 80053; 80061; 82746; 83605; 84270; 84403; 85025; 85652; 86140; 87040; 87077; 87149; 87186; 93306; 96365; 96367; 96372; 96375; 99213; C1751; G0463; J0692; J0696; J1100; J1644; J1650; J1885; J2405; J3010; J3370; J3490; J7050; Q0162; Q9967